=== PATIENT | male | born 1980 | race Caucasian/White ===

== ENCOUNTER → 2019-02-12 | Outpatient (CLI) | payer SELFPAY ==
[~2019-02-12] MED LIST: ESCI20 PO
== END | disposition home or self-care (01) ==
LOC: LAB SHORT 11:28 → LAB 11:28
DX: L02.414 Cutaneous abscess of left upper limb (principal)
CPT/HCPCS: 87070; 87075; 87147; 87205

== ENCOUNTER → 2025-10-07 | Outpatient (CLI) | payer OTHER ==
[2025-10-07 17:50] LABS: BASOPHILS ABSOLUTE AUTO 0.02 K/mm3 (0.00-0.23); BASOPHILS PERCENT AUTO 0 % (0-2); EOSINOPHILS ABSOLUTE AUTO 0.14 K/mm3 (0.00-0.68); EOSINOPHILS PERCENT AUTO 2 % (0-6); Hematocrit 47.6 % (37.0-53.0); Hemoglobin 16.8 g/dL (13.5-17.5); IMMATURE GRAN ABSOLUTE AUTO 0.02 K/mm3 (0.00-0.10); IMMATURE GRAN PERCENT AUTO 0 % (0-1); LYMPHOCYTES ABSOLUTE AUTO 2.66 K/mm3 (0.84-5.20); LYMPHOCYTES PERCENT AUTO 29 % (21-46); MONOCYTES ABSOLUTE AUTO 0.78 K/mm3 (0.16-1.47); MONOCYTES PERCENT AUTO 9 % (4-13); Mean Corpuscular HGB Conc 35.3 g/dL (31.5-36.5); Mean Corpuscular Volume 85 fL (80-100); NEUTROPHILS ABSOLUTE AUTO 5.47 K/mm3 (1.96-9.15); NEUTROPHILS PERCENT AUTO 60 % (41-73); NRBC ABSOLUTE 0.00 K/mm3 (0.00-0.02); NRBC Auto 0.0 /100 WBC (0.0-0.2); Platelet Count 264 K/mm3 (150-400); RDW Coefficient Variation 12.0 % (11.7-14.2); RDW Standard Deviation 37.2 fL (35.1-46.3)
[2025-10-07 20:48] LABS: Alanine Aminotransfer (ALT/SGP 76 U/L (12-78); Albumin, Blood 4.0 g/dL (3.4-5.0); Albumin/Globulin Ratio 1.1 (0.8-1.8); Anion Gap 7 mmol/L (3-11); Aspartate Aminotrans (AST/SGOT 39 U/L (12-37); Bilirubin, Total 0.4 mg/dL (0.1-1.0); Blood Urea Nitrogen 15 mg/dL (8-24); CHOL/HDL RATIO 4.5; CO2, Blood 26 mmol/L (21-32); Calcium, Blood 8.6 mg/dL (8.5-10.1); Chloride, Blood 106 mmol/L (98-108); Cholesterol 194 mg/dL (50-200); Creatinine, Blood 0.88 mg/dL (0.60-1.20); Globulin, Blood 3.6 g/dL (2.2-4.0); Glucose, Blood 104 mg/dL (70-99); HDL Cholesterol 43 mg/dL (>39); LDL/HDL RATIO 1.8; Low Density Lipoprotein Chol 75 mg/dL (0-110); Potassium, Blood 4.2 mmol/L (3.5-5.5); Sodium, Blood 135 mmol/L (136-145); Thyroid Stimulating Hormone 2.960 uIU/mL (0.360-4.800); Total Protein, Blood 7.6 g/dL (6.4-8.2); Triglycerides 378 mg/dL (30-160); Very Low Density Lipoprot Chol 75 mg/dL (6-32)
[2025-10-12 19:19] LABS: TESTOSTERONE, FREE BY DIALYSIS 40.8 pg/mL (47.0-244.0); TESTOSTERONE, TOTAL MASS SPEC 388.1 ng/dL (300.0-890.0)
== END ==
LOC: LAB SHORT 16:33 → LAB 16:33
PROVIDERS: Nurse Practitioner Family
DX: Z13.6 Encounter for screening for cardiovascular disorders (principal); R53.81 Other malaise
CPT/HCPCS: 80053; 80061; 84402; 84403; 84443; 85025